=== PATIENT | male | born 1940 | race Caucasian/White ===

== ENCOUNTER 2019-01-21 12:49 | Emergency (ER) | payer MEDICARE, OTHER ==
[~2019-01-21] VITALS: Ht 182.9 cm; Wt 85.5 kg
[2019-01-21] MEDS ORDERED: buprenorphine/naloxone 8mg/2mg SL tablet SL STA ×2 (14:20→15:45)
[2019-01-21] MEDS ORDERED: ondansetron/PF 4mg/2ml inj IV ONE (14:25)
[2019-01-21] MEDS ORDERED: BUPR1FIL3 SL (16:26)
[2019-01-21] MEDS ORDERED: ONDA8TAB6 PO (16:54)
[2019-01-21] MEDS ORDERED: metoclopramide 5 mg/ml inj IV ONE (16:55)
[2019-01-21 17:07] VITALS: BP 141/101
== END 2019-01-21 17:10 | disposition home or self-care (01) ==
LOC: ER 12:51
DX: F11.23 Opioid dependence with withdrawal (principal); I10 Essential (primary) hypertension; G89.29 Other chronic pain; Z79.899 Other long term (current) drug therapy
CPT/HCPCS: 96374; 96375; 99283; J2405; J2765